=== PATIENT | male | born 1980 | race Hispanic/Latino ===

== ENCOUNTER 2017-08-01 15:47 | Emergency (ER) | payer MEDICAID ==
[2017-08-01 15:47] VITALS: BMI 20.7
[2017-08-01 15:55] VITALS: TEMP 98.7; O2SAT 98
[2017-08-01] MEDS ORDERED: guaiFENesin-Codeine 100-10mg/5ml Syrup (5 ml) UD PO STA (16:03)
[2017-08-01] MEDS ORDERED: Levalbuterol 1.25 MG/3 ML Inhal Soln UD IH STA (16:03)
--- NOTE | 2017-08-01 16:14 | ED PDOC ---
Arrival/HPI - General Chief Complaint: Cough, Cold, Congestion Time Seen by Provider: 08/01/17 15:51 Historian: Patient - History of Present Illness Narrative History of Present Illness (Text): 08/01/17 15:59 A 36 year old male smoker (1/2 ppd), who has a history of polysubstance abuse, presents to the emergency department for cough and congestion, which began earlier this morning. The patient states when he woke up this morning he had a cough with sputum and his chest hurts with the cough (only). He also notes shortness of breath with the cough, mild headache, and runny nose. He denies any fever, vomiting, dysuria, or any other complaints at this time. The patient states his last drug usage was 2 weeks ago. PMD: Dr. Mast Time/Duration: 4-6 hours Symptom Onset: Gradual Symptom Course: Unchanged Severity Level: Mild Activities at Onset: Rest, Light Context: Home Past Medical History - Provider Review Nursing Documentation Reviewed: Yes - Infectious Disease Hx of Infectious Diseases: None - Tetanus Immunization Tetanus Immunization: Up to Date - Cardiac Hx Cardiac Disorders: Yes Hx Hypertension: Yes - Pulmonary Hx Respiratory Disorders: Yes Hx Tuberculosis: No (Patient denied) Other/Comment: Right lung collapsed. 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 - Anesthesia Hx Anesthesia: Yes Hx Anesthesia Reactions: No Hx Malignant Hyperthermia: No - Suicidal Assessment Feels Threatened In Home Enviroment: No Family/Social History - Physician Review Nursing Documentation Reviewed: Yes Family/Social History: No Known Family HX Smoking Status: Heavy Smoker > 10 Cigarettes Daily Hx Alcohol Use: No Hx Substance Use: Yes (Heroin, cocaine, and marijuana) Substance used: marijuana, heroin Amount: 2 Hx Substance Use Treatment: Yes Allergies/Home Meds Allergies/Adverse Reactions: Allergies amoxicillin Allergy (Verified 08/01/17 15:55) RASH Penicillins Allergy (Verified 08/01/17 15:55) RASH Review of Systems - Physician Review All systems were reviewed & negative as marked: Yes - Review of Systems Constitutional: absent: Fevers ENT: Rhinorrhea Respiratory: SOB, Cough, Sputum Gastrointestinal: absent: Vomiting Genitourinary Male: absent: Dysuria Neurological: Headache Physical Exam Vital Signs Reviewed: Yes Vital Signs Temp Pulse Resp BP Pulse Ox 08/01/17 15:55 98.7 F 88 20 148/65 98 08/01/17 15:54 98.7 F 88 20 148/65 98 Temperature: Afebrile Blood Pressure: Normal Pulse: Regular Respiratory Rate: Normal Appearance: Positive for: Well-Appearing, Non-Toxic, Comfortable Pain Distress: None Mental Status: Positive for: Alert and Oriented X 3 - Systems Exam Head: Present: Atraumatic, Normocephalic Pupils: Present: PERRL Extroacular Muscles: Present: EOMI Conjunctiva: Present: Normal Mouth: Present: Moist Mucous Membranes Pharnyx: Present: Normal. No: ERYTHEMA, EXUDATE Neck: Present: Normal Range of Motion Respiratory/Chest: Present: Clear to Auscultation, Decreased Breath Sounds ( slightly diminished breath sounds) Cardiovascular: Present: Regular Rate and Rhythm, Normal S1, S2. No: Murmurs Abdomen: Present: Normal Bowel Sounds. No: Tenderness, Distention, Peritoneal Signs Back: Present: Normal Inspection Upper Extremity: Present: Normal Inspection. No: Cyanosis, Edema Lower Extremity: Present: Normal Inspection. No: Edema Neurological: Present: GCS=15, CN II-XII Intact, Speech Normal Skin: Present: Warm, Dry, Normal Color. No: Rashes Psychiatric: Present: Alert, Oriented x 3, Normal Insight, Normal Concentration Medical Decision Making ED Course and Treatment: 08/01/17 16:13 Impression: A 36 year old male with cough and congestion. Differential Diagnosis included but are not limited to: URI vs bronchitis Plan: -- Chest X-ray -- Robitussin, Xopenex, Sudafed -- Reassess and disposition Progress Notes: 08/01/17 16:48 Patient with noted history. CXR with nad; Feels slightly better with meds - will d/c with robitussin ac with z-pack and f/u pmd. Instructed to use no drugs or cigarettes. - RAD Interpretation Radiology Orders: 08/01/17 16:04 CHEST TWO VIEWS (PA/LAT) [RAD] Stat - Medication Orders Current Medication Orders: Discontinued Medications Guaifenesin/Codeine Phosphate (Robitussin W/Codeine) 10 ml PO ONCE STA Stop: 08/01/17 16:04 Last Admin: 08/01/17 16:17 Dose: 10 ml Levalbuterol HCl (Xopenex) 1.25 mg IH STAT STA Stop: 08/01/17 16:04 Last Admin: 08/01/17 16:17 Dose: 1.25 mg Pseudoephedrine HCl (Sudafed Tab) 60 mg PO ONCE STA Stop: 08/01/17 16:03 Last Admin: 08/01/17 16:17 Dose: 60 mg - Scribe Statement The provider has reviewed the documentation as recorded by the Diane Pizarro Provider Scribe Attestation: All medical record entries made by the Diane were at my direction and personally dictated by me. I have reviewed the chart and agree that the record accurately reflects my personal performance of the history, physical exam, medical decision making, and the department course for this patient. I have also personally directed, reviewed, and agree with the discharge instructions and disposition. Disposition/Present on Arrival - Present on Arrival Any Indicators Present on Arrival: No History of DVT/PE: No History of Uncontrolled Diabetes: No Urinary Catheter: No History of Decub. Ulcer: No History Surgical Site Infection Following: None - Disposition Have Diagnosis and Disposition been Completed?: Yes Diagnosis: Cough, Bronchitis Disposition: HOME/ ROUTINE Disposition Time: 16:50 Patient Plan: Discharge Condition: GOOD Discharge Instructions (ExitCare): Acute Bronchitis (ED), Acute Cough (ED), How to Stop Smoking (ED) Additional Instructions: Stop all cigarette use and any drug use. Take the medications as prescribed. Follow up with your primary care doctor. Return to the emergency department if any new concerning symptoms. Prescriptions: Azithromycin [Zithromax] 2 tab PO DAILY #6 tab guaiFENesin/Codeine [Codeine/Guaifenesin 10 MG/5 Ml-100 MG/5 Ml 5] 2 tsp PO Q6H PRN #120 ml PRN Reason: Cough Pseudoephedrine [Sudafed Tab] 2 tab PO Q6H PRN #24 tab PRN Reason: Nasal Congestion Referrals: Lana Mast DO [Primary Care Provider] - Follow up with primary Forms: [employer] ([place])
--- NOTE | 2017-08-01 16:56 | RAD ---
HISTORY: cough COMPARISON: 09/15/2015 TECHNIQUE: Chest PA and lateral FINDINGS: LUNGS: No active pulmonary disease. PLEURA: No significant pleural effusion identified. No pneumothorax apparent. CARDIOVASCULAR: Normal. OSSEOUS STRUCTURES: No significant abnormalities. VISUALIZED UPPER ABDOMEN: Normal. OTHER FINDINGS: None. IMPRESSION: No active disease.
[2017-08-01 16:59] VITALS: BP 145/63; PULSE 75; RESP 18
== END 2017-08-01 17:07 | disposition home or self-care (01) ==
LOC: ED 15:47
DX: R05 Cough (principal); J40 Bronchitis, not specified as acute or chronic; I10 Essential (primary) hypertension; F17.210 Nicotine dependence, cigarettes, uncomplicated; Z88.0 Allergy status to penicillin

== ENCOUNTER 2017-10-23 01:20 | Emergency (ER) | payer MEDICAID ==
[2017-10-23 01:21] VITALS: BMI 20.7
[2017-10-23 01:42] VITALS: PULSE 78; RESP 18; TEMP 97.9; O2SAT 98
--- NOTE | 2017-10-23 02:04 | ED PDOC ---
Arrival/HPI <Michoacano Jacob - Last Filed: 10/23/17 02:00> <Pj Quintanilla - Last Filed: 10/23/17 06:41> - General Chief Complaint: Upper Extremity Problem/Injury Time Seen by Provider: 10/23/17 01:55 - History of Present Illness Narrative History of Present Illness (Text): 10/23/17 02:04 Pt is a 36 yo M presents to Emergency department with left shoudler pain. Pt states that he believes he injured his left shoulder about 3 weeks ago, but cannot specify a mechanism of injury. MRI of left shoudler obtained on 10/11/17 confirmed left rotator cuff tear. Pt states that he has an appointment to see an orthopedist on 11/02/17. However, pain has worsened and is keeping him up at night. Pt denied chest pain, shortness of breath, nausea, vomiting, abdominal pain, fever, chills, headache, or dizziness. Of note, patient was recently admitted due to drug abuse including heroin and meth. 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 - Anesthesia Hx Anesthesia: Yes Hx Anesthesia Reactions: No Hx Malignant Hyperthermia: No - Suicidal Assessment Feels Threatened In Home Enviroment: No <Michoacano Jacob - Last Filed: 10/23/17 02:00> Family/Social History Family/Social History: No Known Family HX Smoking Status: Heavy Smoker > 10 Cigarettes Daily Hx Alcohol Use: No Hx Substance Use: No Substance used: marijuana, heroin Amount: 2 Hx Substance Use Treatment: Yes <Michoacano Jacob - Last Filed: 10/23/17 02:00> Allergies/Home Meds <Michoacano Jacob - Last Filed: 10/23/17 02:00> <Pj Quintanilla - Last Filed: 10/23/17 06:41> Allergies/Adverse Reactions: Allergies amoxicillin Allergy (Verified 10/23/17 01:37) RASH Penicillins Allergy (Verified 10/23/17 01:37) SWELLING Home Medications: Home Meds Medication Instructions Recorded Confirmed Ibuprofen [Motrin] 600 mg PO QID 10/23/17 10/23/17 Review of Systems - Review of Systems Constitutional: Normal Eyes: Normal ENT: Normal Respiratory: Normal Cardiovascular: Normal Gastrointestinal: Normal Genitourinary Male: Normal Musculoskeletal: Arthralgias (left shoulder) Skin: Normal Neurological: Normal Endocrine: Normal Hemo/Lymphatic: Normal Psychiatric: Normal <Michoacano Jacob - Last Filed: 10/23/17 02:00> Physical Exam Vital Signs Reviewed: Yes Mental Status: Positive for: Alert and Oriented X 3 - Systems Exam Head: Present: Atraumatic, Normocephalic Extroacular Muscles: Present: EOMI Mouth: Present: Moist Mucous Membranes Neck: Present: Normal Range of Motion Respiratory/Chest: Present: Clear to Auscultation. No: Accessory Muscle Use, Wheezes, Rales Cardiovascular: Present: Regular Rate and Rhythm, Normal S1, S2. No: Murmurs, Rub, Gallop Abdomen: No: Tenderness, Distention, Peritoneal Signs, Rebound, Guarding Back: Present: Normal Inspection Upper Extremity: Present: Tenderness (left shoulder, limited ROM) Lower Extremity: Present: Normal Inspection Neurological: Present: GCS=15 Skin: Present: Warm, Dry, Normal Color Psychiatric: Present: Alert, Oriented x 3 <Michoacano Jacob - Last Filed: 10/23/17 02:00> Vital Signs Temp Pulse Resp BP Pulse Ox 10/23/17 02:15 140/86 10/23/17 01:38 97.9 F 78 18 160/94 H 98 Medical Decision Making <Michoacano Jacob - Last Filed: 10/23/17 02:00> <Pj Quintanilla - Last Filed: 10/23/17 06:41> ED Course and Treatment: 10/23/17 02:10 Assessment: 36 yo male with PMH of substance abuse presents to Emergency department with left shoulder pain 2/2 left rotator cuff tear. Plan: - Toradol IM - Rx Motrin - Discharge, follow up with PMD and orthopedist (Michoacano Jacob) Impression: Pt seen and evaluated with medical staff coordinator. Pt presented for left shoulder pain s/p possible injury 3 weeks prior. MRI on 10/11/2017 shows left rotator cuff repair. Aware and agree with HPI, clinical findingd, plan, and management. Plan: -- Toradol -- Reassess and disposition (Pj Quintanilla) - Medication Orders Current Medication Orders: Discontinued Medications Ketorolac Tromethamine (Toradol) 60 mg IM STAT STA Stop: 10/23/17 02:00 Last Admin: 10/23/17 02:17 Dose: 60 mg MAR Pain Assessment Document 10/23/17 02:17 TIFFANY (Rec: 10/23/17 02:18 TIFFANY [id number]) Pain Reassessment Is this a pain reassessment? Yes Sleep Is patient sleeping during reassessment? No Location Left, Right or Bilateral Left Pain Location Body Site Shoulder IM Administration Charges Document 10/23/17 02:17 TIFFANY (Rec: 10/23/17 02:18 TIFFANY [id number]) Charges for Administration # of IM Administrations 1 - PA / HYDRAULIC DESIGN ENGINEER / Resident Statement / has reviewed & agrees with the documentation as recorded. / has examined the patient and agrees with the treatment plan. <Pj Quintanilla - Last Filed: 10/23/17 06:41> Disposition/Present on Arrival - Present on Arrival Any Indicators Present on Arrival: No History of DVT/PE: No History of Uncontrolled Diabetes: No Urinary Catheter: No History of Decub. Ulcer: No History Surgical Site Infection Following: None - Disposition Have Diagnosis and Disposition been Completed?: Yes Disposition Time: 02:01 Patient Plan: Discharge <Michoacano Jacob - Last Filed: 10/23/17 02:00> <Pj Quintanilla - Last Filed: 10/23/17 06:41> - Disposition Diagnosis: Rotator cuff tear, left Disposition: HOME/ ROUTINE Condition: STABLE Discharge Instructions (ExitCare): Rotator Cuff Injury (DC) Additional Instructions: 1. Follow up with PMD 2. Take Motrin as needed for pain 3. Follow up with orthopedic as scheduled 4. Avoid pain inciting activities 5. Return to Emergency department if symptoms worsen Prescriptions: Ibuprofen [Motrin] 600 mg PO QID PRN #20 tab PRN Reason: Pain, Mild (1-3) Forms: [employer] ([place])
[2017-10-23 02:43] VITALS: BP 140/86
== END 2017-10-23 02:25 | disposition home or self-care (01) ==
LOC: ED 01:20
DX: M75.102 Unspecified rotator cuff tear or rupture of left shoulder, not specified as traumatic (principal); F17.210 Nicotine dependence, cigarettes, uncomplicated; I10 Essential (primary) hypertension
CPT/HCPCS: 96372; 99283; J1885